=== PATIENT | male | born 1990 | race African-American/Black ===

== ENCOUNTER 2017-01-26 08:54 | Emergency (ER) | payer OTHER ==
[2017-01-26] MEDS ORDERED: Ondansetron ODT 4 MG TAB ONE (09:31)
[2017-01-26] MEDS ORDERED: Ketorolac Tromethamine 60 MG/2 ML VIAL ONE (09:31)
[2017-01-26 09:44] LABS: Bilirubin Negative (Negative); Blood, Urine Negative (Negative); Clarity Slightly Cloudy (Clear); Glucose, Urine (Dipstick) Negative (Negative); Leukocyte Negative (Negative); Nitrite Negative (Negative); Protein, Urine (Dipstick) Trace mg/dL (Neg-Trace); Specific Gravity, Urine 1.015 (1.005-1.030); pH, Urine 7.5 (5.0-9.0)
[2017-01-26 09:57] LABS: Anion Gap 12 mmol/L (10-20); BUN (Urea Nitrogen) 10 mg/dL (8.9-20.6); Calc. Creatinine Clearance 0 mL/min (70-130); Calcium 9.2 mg/dL (7.8-10.44); Carbon Dioxide 25 mmol/L (22-29); Chloride 104 mmol/L (98-107); Estimated GFR-MDRD Greater than 90; Glucose 93 mg/dL (70-105); Potassium 3.7 mmol/L (3.5-5.1); Sodium 137 mmol/L (136-145)
[2017-01-26 10:07] LABS: #Eosinphils 0.2 thou/uL (0.0-0.7); #Lymphocytes 1.2 thou/uL (1.20-3.40); #Monocytes 0.3 thou/uL (0.11-0.59); #Neutrophils 1.5 thou/uL (1.40-6.50); %Basophils 1.4 % (0.0-1.0); %Eosinophils 7.5 % (0.0-10.0); %Lymphocytes 37.1 % (21.0-51.0); %Monocytes 8.5 % (0.0-10.0); %Neutrophils 45.5 % (42.0-75.0); Hemoglobin 13.1 g/dL (14.0-18.0); Mean Corpuscular HGB CONC 32.9 g/dL (32.0-36.0); Mean Corpuscular Hemoglobin 26.5 pg (27.0-31.0); Mean Corpuscular Volume 80.6 fl (80.0-94.0); Mean Platelet Volume 10.8 fL (7.4-10.4); Platelet Count 155 thou/uL (130-400); RBC Distribution Width 11.8 % (11.5-14.5); Red Blood Cell (RBC) Count 4.95 mill/uL (4.70-6.10); White Blood Cell (WBC) Count 3.3 thou/uL (4.8-10.8)
== END 2017-01-26 10:16 | disposition home or self-care (01) ==
LOC: NAV ERS 08:54
DX: T67.8XXA Other effects of heat and light, initial encounter (principal); R51 Headache
CPT/HCPCS: 80048; 81003; 85025; 96372; J1885; Q0162

== ENCOUNTER 2017-02-11 19:47 | Emergency (ER) | payer OTHER ==
[2017-02-11] MEDS ORDERED: Clindamycin 150 MG CAP ONE (20:11)
[2017-02-11] MEDS ORDERED: methylPREDNISolone Sod Succ/PF 125 MG/2 ML VIAL ONE (20:24)
[2017-02-11] MEDS ORDERED: Acetaminophen/Codeine 30-300mg Tablet ONE (20:27)
== END 2017-02-11 20:30 | disposition home or self-care (01) ==
LOC: NAV ERS 19:47
DX: K02.9 Dental caries, unspecified (principal); G43.909 Migraine, unspecified, not intractable, without status migrainosus
CPT/HCPCS: 99282; J2930

== ENCOUNTER 2017-10-11 11:46 | Emergency (ER) | payer OTHER ==
[2017-10-11] MEDS ORDERED: Gentamicin Ophth Soln 0.3% 5 ml Bottle ONE (12:05)
== END 2017-10-11 12:14 | disposition home or self-care (01) ==
LOC: NAV ERS 11:46
DX: H10.9 Unspecified conjunctivitis (principal); G43.909 Migraine, unspecified, not intractable, without status migrainosus
CPT/HCPCS: 99282

== ENCOUNTER 2018-08-13 15:50 | Emergency (ER) | payer OTHER, SELFPAY ==
[2018-08-13] MEDS ORDERED: Morphine 4 MG/ML VIAL ONE (16:23)
[2018-08-13] MEDS ORDERED: predniSONE 20 MG TAB ONE (16:24)
[2018-08-13] MEDS ORDERED: Ketorolac Tromethamine 60 MG/2 ML VIAL ONE (16:24)
[2018-08-13] MEDS ORDERED: Metoclopramide HCl 10 MG/2 ML VIAL ONE (16:24)
== END 2018-08-13 17:07 | disposition home or self-care (01) ==
LOC: NAV ERS 15:50
DX: G43.909 Migraine, unspecified, not intractable, without status migrainosus (principal)
CPT/HCPCS: 96372; J1885; J2270; J2765; J7506

== ENCOUNTER 2021-03-25 12:48 | Emergency (ER) | payer OTHER, SELFPAY | END 2021-03-25 13:41 | disposition home or self-care (01) | LOC: NAV ERS 12:48 | DX: M54.2 Cervicalgia (principal); G43.909 Migraine, unspecified, not intractable, without status migrainosus | CPT/HCPCS: 99283 ==

== ENCOUNTER 2021-08-05 12:05 | Emergency (ER) | payer SELFPAY ==
[2021-08-06 12:28] LABS: SARS-CoV-2 PCR by NAA Not Detected (NotDetected)
== END 2021-08-05 13:36 | disposition home or self-care (01) ==
LOC: NAV ERS 12:05
DX: J02.9 Acute pharyngitis, unspecified (principal); G43.909 Migraine, unspecified, not intractable, without status migrainosus; Z20.822 Contact with and (suspected) exposure to COVID-19
CPT/HCPCS: 87804; 99284; U0003; U0005

== ENCOUNTER 2022-03-25 07:21 | Emergency (ER) | payer SELFPAY | END 2022-03-25 18:22 | disposition home or self-care (01) | LOC: NAV ERS 07:21 | DX: S93.402A Sprain of unspecified ligament of left ankle, initial encounter (principal) | CPT/HCPCS: 84550 ==

== ENCOUNTER 2022-11-29 16:09 | Emergency (ER) | payer SELFPAY ==
[2022-11-29] MEDS ORDERED: methylPREDNISolone Acetate 40 mg/ml Vial ONE (16:25)
[2022-11-29] MEDS ORDERED: Dexamethasone 20 MG/5 ML VIAL ONE (16:25)
== END 2022-11-29 16:39 | disposition home or self-care (01) ==
LOC: NAV ERS 16:09
DX: R20.0 Anesthesia of skin (principal); F17.290 Nicotine dependence, other tobacco product, uncomplicated
CPT/HCPCS: 96372; 99283; J1030; J1100; J7070

== ENCOUNTER 2024-01-31 11:06 | Emergency (ER) | payer SELFPAY | END 2024-01-31 11:53 | disposition home or self-care (01) | LOC: NAV ERS 11:06 | DX: B34.9 Viral infection, unspecified (principal); F17.290 Nicotine dependence, other tobacco product, uncomplicated | CPT/HCPCS: 99283 ==